=== PATIENT | male | born 1950 | race Caucasian/White ===

== ENCOUNTER 2019-08-22 10:17 | Emergency (ER) | payer OTHER ==
[~2019-08-22] VITALS: Ht 175.3 cm; Wt 127.0 kg
[~2019-08-22 10:17] MED LIST: ALLO300 PO; ASPI81EC PO; CHOLECALCIFEROL PO; MOME220I IH; NIAC250ER PO; OMEP20ER PO; SIMV10 PO; TRAZ50 PO
[2019-08-22 11:24] LABS: BASOPHILS ABSOLUTE AUTO 0.02 K/mm3 (0.00-0.23); BASOPHILS PERCENT AUTO 0 % (0-2); EOSINOPHILS ABSOLUTE AUTO 0.09 K/mm3 (0.00-0.68); EOSINOPHILS PERCENT AUTO 1 % (0-6); Hematocrit 46.5 % (37.0-53.0); Hemoglobin 15.7 g/dL (13.5-17.5); IMMATURE GRAN ABSOLUTE AUTO 0.01 K/mm3 (0.00-0.10); IMMATURE GRAN PERCENT AUTO 0 % (0-1); LYMPHOCYTES ABSOLUTE AUTO 1.87 K/mm3 (0.84-5.20); LYMPHOCYTES PERCENT AUTO 30 % (21-46); MONOCYTES ABSOLUTE AUTO 0.59 K/mm3 (0.16-1.47); MONOCYTES PERCENT AUTO 9 % (4-13); Mean Corpuscular HGB 32.2 pg (26.0-34.0); Mean Corpuscular HGB Conc 33.8 g/dL (31.5-36.5); Mean Corpuscular Volume 96 fL (80-100); Mean Platelet Volume 9.6 fL (9.1-12.4); NEUTROPHILS ABSOLUTE AUTO 3.72 K/mm3 (1.96-9.15); NEUTROPHILS PERCENT AUTO 59 % (41-73); Platelet Count 184 K/mm3 (150-400); RDW Coefficient Variation 13.2 % (11.7-14.2); RDW Standard Deviation 46.6 fL (35.1-46.3); Red Blood Cell Count 4.87 M/mm3 (4.30-5.90)
[2019-08-22 11:44] LABS: Alanine Aminotransfer (ALT/SGP 41 U/L (12-78); Albumin, Blood 3.8 g/dL (3.4-5.0); Albumin/Globulin Ratio 1.2 (0.8-1.8); Alk Phos 76 U/L (50-136); Anion Gap 6 mmol/L (6-16); Aspartate Aminotrans (AST/SGOT 26 U/L (12-37); Bilirubin, Total 0.6 mg/dL (0.1-1.0); Blood Urea Nitrogen 14 mg/dL (8-24); Bun/Creatinine Ratio 16.5 (12.0-20.0); CO2, Blood 28 mmol/L (21-32); Calcium, Blood 8.7 mg/dL (8.5-10.1); Chloride, Blood 106 mmol/L (98-108); Creatinine, Blood 0.85 mg/dL (0.60-1.20); Globulin, Blood 3.3 g/dL (2.2-4.0); Glomerular Filtration Rate >60 (60-); Glucose, Blood 116 mg/dL (70-99); Potassium, Blood 3.9 mmol/L (3.5-5.5); Sodium, Blood 140 mmol/L (136-145); Total Protein, Blood 7.1 g/dL (6.4-8.2)
[2019-08-22] MEDS ORDERED: HYDACE25S PR (11:55)
== END 2019-08-22 12:15 | disposition home or self-care (01) ==
LOC: ER 10:17
PROVIDERS: Emergency Medicine
DX: K64.8 Other hemorrhoids (principal); K60.2 Anal fissure, unspecified; Z88.8 Allergy status to other drugs, medicaments and biological substances; Z79.899 Other long term (current) drug therapy; Z79.82 Long term (current) use of aspirin
CPT/HCPCS: 36415; 80053; 85025; 86850; 86900; 86901; 99283

== ENCOUNTER 2021-06-23 13:21 | Inpatient (IN) | payer OTHER ==
[~2021-06-23] VITALS: Ht 177.8 cm; Wt 117.6 kg
[~2021-06-23 13:21] MED LIST changes: -ASPI81EC PO; +Aspir 8181 MG PO; +HYDACE25S PR
[2021-06-23] MEDS ORDERED: ZYRTEC10 M1 PO (14:10)
[2021-06-23] MEDS ORDERED: CLOP75 PO (14:11)
[2021-06-23] MEDS ORDERED: ACET500 (14:11)
[2021-06-23] MEDS ORDERED: TRAZ100 PO (14:12)
[2021-06-23] MEDS ORDERED: ASPIR 8181 M1 PO (14:12)
[2021-06-23] MEDS ORDERED: TAMS.4ER PO (14:12)
[2021-06-23] MEDS ORDERED: ATOR20 PO (14:13)
[2021-06-23] MEDS ORDERED: TORSE20 PO (14:13)
[2021-06-23] MEDS ORDERED: STRIVERDI RESPIM4 G1 INH (15:01)
[2021-06-23] MEDS ORDERED: FAMO20 PO (15:02)
[2021-06-23] MEDS ORDERED: FLUTICASONE PRO16 GM (15:02)
[2021-06-23] MEDS ORDERED: FINA5 PO (15:02)
[2021-06-23] MEDS ORDERED: PYRI100 PO (15:03)
[2021-06-23] MEDS ORDERED: ALLO300 PO (15:03)
[2021-06-23] MEDS ORDERED: ATOR40TA PO (15:03)
[2021-06-23] MEDS ORDERED: SEN-O-TAB8.6 MG PO (15:04)
[2021-06-23] MEDS ORDERED: COLACE100 MG PO (15:05)
[2021-06-23 15:06] LABS: SARS-Cov-2 (COVID-19) PCR, MMC NEGATIVE (NEGATIVE)
[2021-06-23] MEDS ORDERED: Vitamin D1000 UNI1 PO (15:06)
[2021-06-23 15:51] LABS: BASOPHILS ABSOLUTE AUTO 0.04 K/mm3 (0.00-0.23); BASOPHILS PERCENT AUTO 0 % (0-2); EOSINOPHILS ABSOLUTE AUTO 0.02 K/mm3 (0.00-0.68); EOSINOPHILS PERCENT AUTO 0 % (0-6); Hematocrit 48.7 % (37.0-53.0); Hemoglobin 17.2 g/dL (13.5-17.5); IMMATURE GRAN ABSOLUTE AUTO 0.03 K/mm3 (0.00-0.10); IMMATURE GRAN PERCENT AUTO 0 % (0-1); LYMPHOCYTES ABSOLUTE AUTO 1.19 K/mm3 (0.84-5.20); LYMPHOCYTES PERCENT AUTO 9 % (21-46); MONOCYTES ABSOLUTE AUTO 1.14 K/mm3 (0.16-1.47); MONOCYTES PERCENT AUTO 9 % (4-13); Mean Corpuscular HGB 32.5 pg (26.0-34.0); Mean Corpuscular HGB Conc 35.3 g/dL (31.5-36.5); Mean Corpuscular Volume 92 fL (80-100); Mean Platelet Volume 9.7 fL (9.1-12.4); NEUTROPHILS ABSOLUTE AUTO 10.81 K/mm3 (1.96-9.15); NEUTROPHILS PERCENT AUTO 82 % (41-73); Platelet Count 189 K/mm3 (150-400); RDW Coefficient Variation 12.7 % (11.7-14.2); RDW Standard Deviation 42.8 fL (35.1-46.3); Red Blood Cell Count 5.29 M/mm3 (4.30-5.90); White Blood Cell Count 13.23 K/mm3 (4.00-11.30)
[2021-06-23 16:23] LABS: Alanine Aminotransfer (ALT/SGP 40 U/L (12-78); Albumin, Blood 3.8 g/dL (3.4-5.0); Alk Phos 77 U/L (50-136); Anion Gap 7 mmol/L (6-16); Aspartate Aminotrans (AST/SGOT 20 U/L (12-37); Bilirubin, Total 1.1 mg/dL (0.1-1.0); Blood Urea Nitrogen 24 mg/dL (8-24); Bun/Creatinine Ratio 24.7 (12.0-20.0); CO2, Blood 33 mmol/L (21-32); Calcium, Blood 9.9 mg/dL (8.5-10.1); Chloride, Blood 103 mmol/L (98-108); Creatinine, Blood 0.97 mg/dL (0.60-1.20); Globulin, Blood 3.8 g/dL (2.2-4.0); Glomerular Filtration Rate >60 (60-); Glucose, Blood 201 mg/dL (70-99); Potassium, Blood 3.8 mmol/L (3.5-5.5); Sodium, Blood 143 mmol/L (136-145); Total Protein, Blood 7.6 g/dL (6.4-8.2)
--- NOTE | 2021-06-23 18:42 | NUR ---
PATIENT ARRIVED TO THE FLOOR VIA STRETCHER FROM THE ED AT 1630. TRANFERED TO THE BED FROM THE STRETCHER, STEADY ON FEET. NGT TO LEFT NARE, RETAPED AT THAT TIME TO SECURE BETTER, DRAINING LIGHT BROWN/GREEN DRAINAGE TO LIS. PATIENT IS AAOX4, ABLE TO MAKE NEEDS AND WANTS KNOWN BUT TAKES A WHILE TO GET HIS WORDS OUT SOMETIMES, MORE SO WHEN ASKED TOO MANY QUIESTIONS AT ONCE. NO SIGNS OR SYMPTOMS ACUTE DISTRESS NOTED. NO COMPLAINTS OF PAIN OR NAUSEA AT THIS TIME. NS AT 125/ML PER HOUR STARTED. DR SOSA CAME BY TO SEE PATIENT. PATIENT IS TO REMAIN NPO WITH MINIMAL ICE CHIPS AND A CT WILL BE DONE TOMORROW. WILL MONITOR.
--- NOTE | 2021-06-24 01:30 | NUR ---
C/O N/V, STATES IT WAS TRIGGERED BY INDIGESTION. REFLUX VALVE CLEARED WITH AIR. 50ML H2O INFUSED INTO NG TUBE. IMMEDIATE RETURN OF 250ML CLOUDY GREEN/BROWN FLUID NOTED INTO SUCTION CANISTER. TOTAL OF 1150ML NOTED IN CANISTER WHEN CHANGED OUT. RECONNECTED TO LIWS, FLUID CONTINUED TO DRAIN INTO NEW CANISTER. VOICES IMPROVEMENT IN PRESSURE AND INDIGESTION. LYING IN SEMI FOWLERS WITH EYES CLOSED. WILL CONTINUE TO MONITOR AND ADDRESS NEEDS THEY ARISE.
--- NOTE | 2021-06-24 03:22 | NUR ---
CANISTER CONTAINING 1250ML BROWN/GREEN FLUID CHANGED OUT FOR NEW ONE. PT ABLE TO VERBALIZE WHEN PRESSURE BEGINS BUILDING IN HIS ABDOMEN, AND NURSING IS ABLE TO IRRIGATE THE LINE NEEDED. DENIES FURTHER NEEDS OR WANTS AT THIS TIME. SAFETY MEASURES IN PLACE. WILL CONTINUE TO MONITOR AND ADDRESS NEEDS THEY ARISE.
[2021-06-24 05:13] LABS: International Normalized Ratio 1.04; Prothrombin Time Results 10.9 Sec (9.7-11.5)
[2021-06-24 05:23] LABS: Alanine Aminotransfer (ALT/SGP 36 U/L (12-78); Albumin, Blood 3.6 g/dL (3.4-5.0); Alk Phos 69 U/L (50-136); Anion Gap 3 mmol/L (6-16); Aspartate Aminotrans (AST/SGOT 20 U/L (12-37); Bilirubin, Total 1.2 mg/dL (0.1-1.0); Blood Urea Nitrogen 25 mg/dL (8-24); Bun/Creatinine Ratio 26.8 (12.0-20.0); CO2, Blood 39 mmol/L (21-32); Calcium, Blood 9.5 mg/dL (8.5-10.1); Chloride, Blood 101 mmol/L (98-108); Creatinine, Blood 0.93 mg/dL (0.60-1.20); Globulin, Blood 3.7 g/dL (2.2-4.0); Glomerular Filtration Rate >60 (60-); Glucose, Blood 282 mg/dL (70-99); Potassium, Blood 3.1 mmol/L (3.5-5.5); Sodium, Blood 143 mmol/L (136-145); Total Protein, Blood 7.3 g/dL (6.4-8.2)
--- NOTE | 2021-06-24 05:31 | NUR ---
LYING ON RIGHT SIDE WITH EYES OPEN, HAS RESTED OFF AND ON THIS SHIFT. RESPIRATIONS EVEN AND UNLABORED ON O2 AT 4L/NC. HAS BEEN NPO SINCE ADMISSION NG TUBE TO LEFT NARE REMAINS PATENT, DRAINING CLOUDY BROWN/GREEN LIQUID TO LIWS. CANISTER CHANGED TWICE THIS SHIFT. ABLE TO VERBALIZE IF PRESSURE BUILDUP IN ABDOMEN BECOMES TOO UNCOMFORTABLE. IRRIGATED NG TUBE X2 THIS SHIFT WITH 50ML EACH TIME, WORKS WELL. PT HAS PMHX OF TBI, HAS ISSUES WITH COLLECTING HIS THOUGHTS AND COMMUNICATION AT TIMES. PAIN MANAGED PRN PER MD ORDERS AND EMAR. DENIES FURTHER NEEDS OR WANTS AT THIS TIME. SAFETY MEASURES IN PLACE. WILL CONTINUE TO MONITOR AND ADDRESS NEEDS THEY ARISE. WILL GIVE HAND OFF TO ONCOMING SHIFT USING SBAR DURING BEDSIDE REPORT.
--- NOTE | 2021-06-24 17:36 | NUR ---
PATIENT CURRENTLY SITTIN EDGE OF BED DRINKING HIS CLEAR LIQUID DINNER. TOLERATING PO WELL. THIS AM PATIENT WENT DOWN TO XRAY FOR SBO SERIES, PATIENT HAD MULTIPLE BOWEL MOVEMENTS WHEN RETURNING WITH SOME FORMED PARTICLES NOTED IN TOILET. DR SOSA LOOKED SCANS ORDERED FOR NGT TO BE REMOVED. AND TO GIVE PATIENT A CLEAR LIQUID DIET. NGT REMOVED, TOLERATED WELL AT 1330. PATIENT CURRENTLY ON 3L O2 PER NC, CONTINOUS PULSE OX SHOWS PATIENT STAYING AT 88-93%. PATIENT DOES NOTE USED O2 AT HOME BUT DOES USE A CPAP AT HS. CAREGIVER BROUGHT HIS PERSONAL CPAP IN FOR PATIENT TO USE TONIGHT. NO SIGNS OR SYMPTOMS ACUTE DISTRESS NOTED. CAREGIVER HAS BEEN HERE MOST OF THE DAY WITH PERMISSION FROM CHARGE NURSE. PATIENT IS ABLE TO MAKE NEEDS KNOWN BUT UNABLE TO AT TIMES VOICE NEEDS CLEARLY, HE GETS FRUSTRATED AND WORKED UP, HE IS REDIRECTED FAIRLY EASILIY. WILL CONTINUE TO MONITOR.
--- NOTE | 2021-06-25 06:01 | NUR ---
PT IS A/OX1, TO SELF. CONFUSED TO TIME OF DAY, WHERE HE IS AT. IS EASILY FROSTRATED AND AGGITATED. HX OF TBI. DOES NOT USE CALL LIGHT TO MAKE HIS NEEDS KNOWN, INSTEAD YELLS OUT. USED HIS HOME CPAP MOST OF THE NIGHT, BUT FREQUENTLY REMOVED IT THEN REAPPLIED IT DURING THE NIGHT WHILE YELLING OUT "I DON'T KNOW HOW TO OPEN IT. I DON'T KNOW HOW TO USE IT. FROM THE V.A." CONTINOUS PULSE OX IN PLACE. IF NOT USING HIS CPAP, THEN OXYGEN AT 4L PER NC. DOES DESAT INTO HIGH 80'S WHEN NOT USING CPAP OR OXYGEN. HS BLOOD SUGAR: 246. HE REFUSED HS INSULIN.
[2021-06-25 07:56] LABS: Hematocrit 48.2 % (37.0-53.0); Hemoglobin 16.4 g/dL (13.5-17.5); Mean Corpuscular HGB 32.5 pg (26.0-34.0); Mean Corpuscular Volume 95 fL (80-100); Mean Platelet Volume 10.3 fL (9.1-12.4); Platelet Count 174 K/mm3 (150-400); RDW Coefficient Variation 13.1 % (11.7-14.2); Red Blood Cell Count 5.05 M/mm3 (4.30-5.90); White Blood Cell Count 5.14 K/mm3 (4.00-11.30)
[2021-06-25 08:07] LABS: Anion Gap 4 mmol/L (6-16); Blood Urea Nitrogen 31 mg/dL (8-24); CO2, Blood 37 mmol/L (21-32); Calcium, Blood 8.8 mg/dL (8.5-10.1); Chloride, Blood 105 mmol/L (98-108); Creatinine, Blood 0.97 mg/dL (0.60-1.20); Glomerular Filtration Rate >60 (60-); Glucose, Blood 213 mg/dL (70-99); Potassium, Blood 2.9 mmol/L (3.5-5.5); Sodium, Blood 146 mmol/L (136-145); Thyroid Stimulating Hormone 0.833 uIU/mL (0.360-4.800)
[2021-06-25 08:33] LABS: BAND PERCENT MAN 33 % (0-8); BASOPHILS PERCENT MAN 0 % (0-2); EOSINOPHILS ABSOLUTE MAN 0.05 K/mm3 (0.00-0.68); EOSINOPHILS PERCENT MAN 1 % (0-6); LYMPHOCYTES ABSOLUTE MAN 1.07 K/mm3 (0.84-5.20); LYMPHOCYTES PERCENT MAN 21 % (21-46); MONOCYTES ABSOLUTE MAN 0.66 K/mm3 (0.16-1.47); MONOCYTES PERCENT MAN 13 % (4-13); NEUTROPHILS ABSOLUTE MAN 3.34 K/mm3 (1.96-9.15); SEG NEUTROPHILS PERCENT MAN 32 % (41-73); TOTAL CELLS COUNTED 100
[2021-06-25 10:25] LABS: Adenovirus Not Detected (NOT DETECT); Coronavirus 229E Not Detected (NOT DETECT); Coronavirus HKU1 Not Detected (NOT DETECT); Coronavirus NL63 Not Detected (NOT DETECT); Coronavirus OC43 Not Detected (NOT DETECT); Human Metapneumovirus Not Detected (NOT DETECT); Human Rhinovirus/Enterovirus Not Detected (NOT DETECT); Influenza A/2009-H1 Not Detected (NOT DETECT); Influenza A/H1 Not Detected (NOT DETECT); Influenza A/H3 Not Detected (NOT DETECT); Influenza B Not Detected (NOT DETECT); SARS-Cov-2 (COVID-19), BioFire Not Detected (NOT DETECT)
[2021-06-25 10:26] LABS: Bordetella pertussis Not Detected (NOT DETECT); Chlamydophila pneumoniae Not Detected (NOT DETECT); Mycoplasma pneumoniae Not Detected (NOT DETECT); Parainfluenza Virus 1 Not Detected (NOT DETECT); Parainfluenza Virus 2 Not Detected (NOT DETECT); Parainfluenza Virus 3 Not Detected (NOT DETECT); Parainfluenza Virus 4 Not Detected (NOT DETECT); Respiratory Syncytial Virus Not Detected (NOT DETECT)
--- NOTE | 2021-06-25 18:33 | NUR ---
PATIENT CURRENTLY LYING IN BED WITH EYES CLOSED WITH CPAP ON WITH 5L OF 02 BLEEDING INTO HIS MACHINE. NO SIGNS OR SYMPTOMS ACUTE DISTRESS NOTED AT THIS TIME. PATIENT HAD EVENTFUL DAY TODAY. COMPLAINED OF ABD PAIN AND WAS MEDICATED WITH PAIN MEDS PER ORDERS-SEE EMAR. PATIENT HAD MULTIPLE LOOSE STOOLS AND GAS THIS AM, WAS UNABLE TO COLLECT STOOL FOR CDIFF HE DID NOT HAVE ANOTHER STOOL AFTER THE ORDER WAS PLACED. WILL PASS ON TO NEXT SHIFT TO COLLECT STOOL IF HE HAS ONE. PATIENT WORKED WITH PT AND OT TODAY AND WALKED IN THE TORRES. TOLERATED FAIR. O2 INCREASED TO 5L PER NC DUE TO DESATURATION ON MULTIPLE OCCASIONS. HE WAS PLACED ON HIS CPAP AT ABOUT 1400 PER RT TO REST, PATIENT COMPLIED AND SLEPT FAIRLY WELL WITH CAREGIVER IN ROOM. SAT UP TO EAT SUPPER, ATE POORLY. BOWEL SOUNDS ACTIVE. ABD DISTENDED AND TENDER. WILL MONITOR.
--- NOTE | 2021-06-26 06:20 | NUR ---
PT IS A/OX1, TO SELF. YELLS OUT. POOR SAFETY AWARENESS. EASILY AGITATED AND FRUSTRATED. USED CPAP DURING THE NIGHT. CONTINOUS PULSE OX IN PLACE. ABD DISTENDED. PT C/O STOMACHE ACHE AND FEELING BLOATED. SIMETHICONE GIVEN. PASSING SOME GAS. HAD LOOSE STOOL, BUT WAS MIXED W/URINE TO UNABLE TO OBTAIN SAMPLE FOR C-DIFF. ON CONTACT PRECAUTIONS TO R/T C-DIFF. BT'S VERY HYPO.
[2021-06-26 07:03] LABS: Hematocrit 42.7 % (37.0-53.0); Hemoglobin 14.8 g/dL (13.5-17.5); Mean Corpuscular HGB 32.7 pg (26.0-34.0); Mean Corpuscular HGB Conc 34.7 g/dL (31.5-36.5); Mean Corpuscular Volume 95 fL (80-100); Platelet Count 170 K/mm3 (150-400); RDW Coefficient Variation 12.8 % (11.7-14.2); RDW Standard Deviation 44.4 fL (35.1-46.3); Red Blood Cell Count 4.52 M/mm3 (4.30-5.90); White Blood Cell Count 8.68 K/mm3 (4.00-11.30)
[2021-06-26 07:07] LABS: Anion Gap 2 mmol/L (6-16); Blood Urea Nitrogen 24 mg/dL (8-24); Bun/Creatinine Ratio 26.9 (12.0-20.0); CO2, Blood 34 mmol/L (21-32); Calcium, Blood 8.3 mg/dL (8.5-10.1); Chloride, Blood 107 mmol/L (98-108); Creatinine, Blood 0.89 mg/dL (0.60-1.20); Glomerular Filtration Rate >60 (60-); Glucose, Blood 164 mg/dL (70-99); Magnesium, Blood 2.2 mg/dL (1.6-2.4); Potassium, Blood 3.1 mmol/L (3.5-5.5); Sodium, Blood 143 mmol/L (136-145)
[2021-06-26 07:47] LABS: BAND PERCENT MAN 9 % (0-8); BASOPHILS PERCENT MAN 0 % (0-2); EOSINOPHILS ABSOLUTE MAN 0.34 K/mm3 (0.00-0.68); EOSINOPHILS PERCENT MAN 4 % (0-6); LYMPHOCYTES ABSOLUTE MAN 1.12 K/mm3 (0.84-5.20); LYMPHOCYTES PERCENT MAN 13 % (21-46); MONOCYTES ABSOLUTE MAN 1.21 K/mm3 (0.16-1.47); MONOCYTES PERCENT MAN 14 % (4-13); NEUTROPHILS ABSOLUTE MAN 5.98 K/mm3 (1.96-9.15); SEG NEUTROPHILS PERCENT MAN 60 % (41-73); TOTAL CELLS COUNTED 100
--- NOTE | 2021-06-26 17:00 | NUR ---
RESTLESS AND CALLING OUT AT TIMES, PT CALMS WHEN STAFF OR CAREGIVER AT BEDSIDE. PT REPORTS ABD PAIN THAT "COMES AND GOES" ABD DISTENDED WITH ACTIVE BOWEL SOUNDS, NO BM THIS SHIFT.
--- NOTE | 2021-06-26 17:13 | NUR ---
PT USES CPAP MOST OF SHIFT, WEARS OXYGEN AT 5 LITER NC WHEN SITTING ON EDGE OF BED. ELECTRICAL MACHINIST CONSULT COMPLETED AND ELECTRICAL MACHINIST COMPLETED REFERRAL TO [facility] ELECTRICAL MACHINIST FOR DIABETIC EDUCATION.
[2021-06-27 05:12] LABS: C DIFFICILE DNA NEGATIVE (Negative)
--- NOTE | 2021-06-27 07:49 | NUR ---
SUMMARY PT SLEPT MOST OF NIGHT,AND PLANS FOR POSSIBLE D/C HOME IN AM
[2021-06-27] MEDS ORDERED: BUSP5 PO (17:18)
[2021-06-27] MEDS ORDERED: METF500 PO (17:19)
[2021-06-27] MEDS ORDERED: ONDA4ODT MM (17:20)
[2021-06-27] MEDS ORDERED: SIME80CH PO (17:21)
--- NOTE | 2021-06-27 17:21 | NUR ---
discharge: MESSAGE FOR HOME HEALTH LIASON LEFT REGARDING PT DISCHARGE TO HOME WITH JULI. MEDICATIONS FAXED TO PHARMACY. PT TO PAY OUT OF POCKET TO FILL METFORMIN, SCRIPT FAXED TO PHARMACY. [facility] WILL SET PT UP WITH PORTABLE AND HOME O2 PRIOR TO DISCHARGE.
--- NOTE | 2021-06-27 18:44 | NUR ---
PLAN FOR PT DC TONIGHT, PACKET PRINTED AND PT/PT CAREGIVER EDUCATED. AWAITING HOME O2 FROM [facility] AT THIS TIME. UTILITIES GROUND WORKER CALLING THE [facility] INFUSION NURSE FOR THE 2ND TIME NOW
== END 2021-06-27 19:10 | disposition home health service (06) | DRG 389 ==
LOC: ER 13:21 → SURS 14:58
PROVIDERS: Emergency Medicine; Internal Medicine; Nurse Practitioner Acute Care; Surgery; ADMIT Family Medicine
DX: K91.30 Postprocedural intestinal obstruction, unspecified as to partial versus complete (principal); E66.2 Morbid (severe) obesity with alveolar hypoventilation; R65.10 Systemic inflammatory response syndrome (SIRS) of non-infectious origin without acute organ dysfunction; I50.32 Chronic diastolic (congestive) heart failure; Z20.822 Contact with and (suspected) exposure to COVID-19; E11.9 Type 2 diabetes mellitus without complications; G47.33 Obstructive sleep apnea (adult) (pediatric); Z68.37 Body mass index [BMI] 37.0-37.9, adult; E78.5 Hyperlipidemia, unspecified; E87.6 Hypokalemia; N40.0 Benign prostatic hyperplasia without lower urinary tract symptoms; K21.9 Gastro-esophageal reflux disease without esophagitis; Z86.73 Personal history of transient ischemic attack (TIA), and cerebral infarction without residual deficits; G47.00 Insomnia, unspecified; M19.90 Unspecified osteoarthritis, unspecified site; Z90.49 Acquired absence of other specified parts of digestive tract; Z98.890 Other specified postprocedural states; Z79.82 Long term (current) use of aspirin; Z79.899 Other long term (current) drug therapy; Z88.8 Allergy status to other drugs, medicaments and biological substances; Z79.02 Long term (current) use of antithrombotics/antiplatelets; Z86.718 Personal history of other venous thrombosis and embolism; K59.00 Constipation, unspecified; M10.9 Gout, unspecified
CPT/HCPCS: 0202U; 36415; 71045; 71046; 74177; 74250; 80048; 80053; 82947; 83605; 83735; 84443; 85025; 85610; 87040; 87493; 94640; 94762; 96374; 97110; 97116; 97162; 97166; 97530; 97535; 99285-25; A9270; C9113; J1815; J2405; J2543; J3010; J3480; J7030; Q9967; U0004

== ENCOUNTER 2023-08-23 13:12 | Emergency (ER) | payer OTHER ==
[~2023-08-23] VITALS: Ht 177.8 cm; Wt 114.3 kg
[~2023-08-23 13:12] MED LIST changes: +ACET500; +ASPIR 8181 M1 PO; +ATOR20 PO; +ATOR40TA PO; +BUSP5 PO; +CLOP75 PO; +COLACE100 MG PO; +FAMO20 PO; +FINA5 PO; +FLUTICASONE PRO16 GM; +METF500 PO; +ONDA4ODT MM; +PYRI100 PO; +SEN-O-TAB8.6 MG PO; +SIME80CH PO; +STRIVERDI RESPIM4 G1 INH; +TAMS.4ER PO; +TORSE20 PO; +TRAZ100 PO; +Vitamin D1000 UNI1 PO; +ZYRTEC10 M1 PO
[2023-08-23 14:47] VITALS: BP 169/76
== END 2023-08-23 14:55 | disposition home or self-care (01) ==
LOC: ER 13:12
DX: S09.90XA Unspecified injury of head, initial encounter (principal); E78.5 Hyperlipidemia, unspecified; M10.9 Gout, unspecified; W01.0XXA Fall on same level from slipping, tripping and stumbling without subsequent striking against object, initial encounter; Z88.8 Allergy status to other drugs, medicaments and biological substances; Z79.02 Long term (current) use of antithrombotics/antiplatelets; Z79.82 Long term (current) use of aspirin; Z79.84 Long term (current) use of oral hypoglycemic drugs; Z79.899 Other long term (current) drug therapy; Z86.73 Personal history of transient ischemic attack (TIA), and cerebral infarction without residual deficits; Z87.891 Personal history of nicotine dependence
CPT/HCPCS: 70450; 99284-25

== ENCOUNTER 2024-11-03 07:57 | Inpatient (IN) | payer OTHER ==
[~2024-11-03] VITALS: Ht 175.3 cm; Wt 106.9 kg
[2024-11-03 09:03] LABS: BASOPHILS ABSOLUTE AUTO 0.05 K/mm3 (0.00-0.23); BASOPHILS PERCENT AUTO 0 % (0-2); EOSINOPHILS ABSOLUTE AUTO 0.02 K/mm3 (0.00-0.68); EOSINOPHILS PERCENT AUTO 0 % (0-6); Hematocrit 47.4 % (37.0-53.0); Hemoglobin 16.5 g/dL (13.5-17.5); IMMATURE GRAN ABSOLUTE AUTO 0.07 K/mm3 (0.00-0.10); IMMATURE GRAN PERCENT AUTO 0 % (0-1); LYMPHOCYTES ABSOLUTE AUTO 1.03 K/mm3 (0.84-5.20); LYMPHOCYTES PERCENT AUTO 7 % (21-46); MONOCYTES ABSOLUTE AUTO 1.03 K/mm3 (0.16-1.47); MONOCYTES PERCENT AUTO 7 % (4-13); Mean Corpuscular HGB 31.9 pg (26.0-34.0); Mean Corpuscular HGB Conc 34.8 g/dL (31.5-36.5); Mean Corpuscular Volume 92 fL (80-100); Mean Platelet Volume 10.2 fL (9.1-12.4); NEUTROPHILS PERCENT AUTO 86 % (41-73); Platelet Count 228 K/mm3 (150-400); RDW Coefficient Variation 13.6 % (11.7-14.2); RDW Standard Deviation 46.3 fL (35.1-46.3); Red Blood Cell Count 5.17 M/mm3 (4.30-5.90)
[2024-11-03 09:27] LABS: Albumin, Blood 4.4 g/dL (3.4-5.0); Albumin/Globulin Ratio 1.1 (0.8-1.8); Bilirubin, Total 1.1 mg/dL (0.1-1.0); Calcium, Blood 9.6 mg/dL (8.5-10.1); Creatinine, Blood 1.24 mg/dL (0.60-1.20); Globulin, Blood 3.9 g/dL (2.2-4.0); Potassium, Blood 4.2 mmol/L (3.5-5.5); Total Protein, Blood 8.3 g/dL (6.4-8.2)
[2024-11-03] MEDS ORDERED: Azithromycin 500 MG in NS 250 ML IV ONE (09:50)
[2024-11-03] MEDS ORDERED: NS 1,000 ML IV SCH (09:50)
[2024-11-03] MEDS ORDERED: CefTRIAXone Sodium 2,000 MG in NS 100 ML IV ONE (09:50)
[2024-11-03] MEDS ORDERED: FentaNYL Citrate 50 MCG/ML 2 ML Injection IV PRN (11:05)
[2024-11-03] MEDS ORDERED: OxyCODONE HCL 5 MG TAB PO PRN (12:50)
[2024-11-03] MEDS ORDERED: Morphine Sulfate 4 MG/1 ML Injection IV PRN (12:50)
[2024-11-03] MEDS ORDERED: Ondansetron HCl 2 MG / ML 2ML Vial IV PRN (12:50)
[2024-11-03] MEDS ORDERED: Lidocaine 4% 1 Patch TOP SCH (13:00)
[2024-11-03] MEDS ORDERED: Polyethylene Glycol 3350 17 gm PO PRN (13:20)
[2024-11-03] MEDS ORDERED: FLU VACC TS2024-25(6MOS UP)/PF 45 MCG/0.5 ML SYRINGE IM ONE (14:00)
[2024-11-03] MEDS ORDERED: Lactated Ringer's 1,000 ML IV SCH (14:14)
[2024-11-03 14:24] VITALS: BP 156/82
--- NOTE | 2024-11-03 14:49 | NUR ---
ARRIVAL TO UNIT AFTER RECEIVING REPORT FROM ED RN, PATIENT TRANSFERRED TO UNIT VIA [facility] AT APPROX 1415. PATIENT ABLE TO STAND AND TRANSFER FROM GURNEY TO BED WITH 1P ASSIST - UNSTEADY GAIT. ALERT AND ORIENTED X2-3. UNABLE TO REPORT MEDICAL HX. BED ALARM ON. SOFT, GARBLED SPEECH. NEIGHBOR BRADLEY AT BEDSIDE - PER NEIGHBOR, PATIENT LIVES ALONE IN TRAIL[place] AND HE AND BEVERLY ASSIST WITH CARE. PER BEVERLY HUERTA MANAGES HEALTH INFORMATION - BEVERLY TO BRING IN MEDICATION LIST FOR HOME MED VERIFICATION. VSS. TELEMETRY SHOWING SINUS 70s PER HEALTH TECHNICAL WRITER. PLACED ON 2L VIA NC. SATs 86-88% ON ROOM AIR. PILLOW PROVIDED FOR SPLINTING WITH OCCASIONAL COUGH. CALL LIGHT IN REACH.
[2024-11-03] MEDS ORDERED: Prozac40 MG PO (15:26)
[2024-11-03] MEDS ORDERED: LIDO700A20 TOP (15:30)
[2024-11-03] MEDS ORDERED: MIRALAX17 GM PO (15:35)
[2024-11-03] MEDS ORDERED: POTASSIUM CHLO15 MEQ PO (15:45)
[2024-11-03] MEDS ORDERED: B-12500 MC2 PO (15:49)
[2024-11-03] MEDS ORDERED: MELA3 PO (15:49)
[2024-11-03] MEDS ORDERED: Insulin Human Lispro 100 Units/ML 3ML Syringe SC SCH ×2 (16:30)
[2024-11-03] MEDS ORDERED: Insulin Regular 100 UNIT/ML 10ML Vial SC SCH (16:30)
--- NOTE | 2024-11-03 17:20 | NUR ---
SHIFT SUMMARY NO ACUTE EVENTS SINCE ARRIVAL TO UNIT. PATIENT REMAINS ALERT AND ORIENTED X2-3. CALLS OUT TO COMMUNICATE NEEDS. CALL LIGHT IN REACH - EDUCATION PROVIDED. BED ALARM ON. HOME MED REC COMPLETED THIS AFTERNOON. HOSPITALIST CONSULT IN PLACE. MD PEDROZA AT BEDSIDE FOR CONSULT - NO ORDERS RECEIVED. VSS. TELEMETRY SHOWING SINUS 80s PER REMOTE SENSING TECHNICIAN - NO EVENTS REPORTED. REMAINS ON 2L VIA NC. HOME CPAP SET UP BY RT FOR USE TONIGHT. MANAGING R SIDE PAIN PER EMAR. X1 EPISODE OF N/V - IV ZOFRAN ADMINISTERED PER EMAR. CALL LIGHT IN REACH.
[2024-11-03] MEDS ORDERED: Albuterol 2.5 MG/3 ML VIAL INH PRN (17:25)
[2024-11-03] MEDS ORDERED: Atorvastatin 40 MG Tab PO SCH (18:00)
[2024-11-03] MEDS ORDERED: Ibuprofen 400 MG Tab PO SCH (18:00)
[2024-11-03] MEDS ORDERED: Acetaminophen 500 MG Tab PO SCH (18:00)
[2024-11-03 20:01] VITALS: BP 139/90
[2024-11-03] MEDS ORDERED: Sennosides 8.6 MG Tab PO SCH (21:00)
[2024-11-03] MEDS ORDERED: Famotidine 20 MG Tab PO SCH (21:00)
[2024-11-03] MEDS ORDERED: TraZODone HCl 100 MG Tab PO SCH (21:00)
[2024-11-03] MEDS ORDERED: Melatonin 3 MG Tab PO PRN (23:05)
[2024-11-03 23:44] VITALS: BP 132/72
[2024-11-04] MEDS ORDERED: Albuterol 2.5 MG/3 ML VIAL INH SCH (01:20)
[2024-11-04 03:44] VITALS: BP 138/86
[2024-11-04] MEDS ORDERED: Lidocaine 2% Jelly Uro-Jet UR ONE (03:55)
[2024-11-04 05:48] LABS: BASOPHILS ABSOLUTE AUTO 0.04 K/mm3 (0.00-0.23); BASOPHILS PERCENT AUTO 1 % (0-2); EOSINOPHILS ABSOLUTE AUTO 0.04 K/mm3 (0.00-0.68); EOSINOPHILS PERCENT AUTO 1 % (0-6); Hematocrit 43.6 % (37.0-53.0); Hemoglobin 14.7 g/dL (13.5-17.5); IMMATURE GRAN ABSOLUTE AUTO 0.02 K/mm3 (0.00-0.10); IMMATURE GRAN PERCENT AUTO 0 % (0-1); LYMPHOCYTES ABSOLUTE AUTO 1.19 K/mm3 (0.84-5.20); LYMPHOCYTES PERCENT AUTO 14 % (21-46); MONOCYTES ABSOLUTE AUTO 1.26 K/mm3 (0.16-1.47); MONOCYTES PERCENT AUTO 15 % (4-13); Mean Corpuscular HGB 31.7 pg (26.0-34.0); Mean Corpuscular HGB Conc 33.7 g/dL (31.5-36.5); Mean Corpuscular Volume 94 fL (80-100); Mean Platelet Volume 9.8 fL (9.1-12.4); NEUTROPHILS ABSOLUTE AUTO 6.02 K/mm3 (1.96-9.15); NEUTROPHILS PERCENT AUTO 70 % (41-73); Platelet Count 190 K/mm3 (150-400); RDW Standard Deviation 48.1 fL (35.1-46.3); Red Blood Cell Count 4.64 M/mm3 (4.30-5.90); White Blood Cell Count 8.57 K/mm3 (4.00-11.30)
[2024-11-04 06:12] LABS: Albumin, Blood 3.7 g/dL (3.4-5.0); Bilirubin, Direct 0.3 mg/dL (0.0-0.3); Bilirubin, Total 1.3 mg/dL (0.1-1.0); Bun/Creatinine Ratio 31.2 (12.0-20.0); Calcium, Blood 8.8 mg/dL (8.5-10.1); Creatinine, Blood 1.09 mg/dL (0.60-1.20); Globulin, Blood 3.7 g/dL (2.2-4.0); Magnesium, Blood 2.2 mg/dL (1.6-2.4); Potassium, Blood 3.5 mmol/L (3.5-5.5); Total Protein, Blood 7.4 g/dL (6.4-8.2)
--- NOTE | 2024-11-04 07:20 | NUR ---
NURSES NOTES; PATIENT BECAME MORE AND MORE ANXIOUS THE NIGHT WHENT ON. NOT AGGRESSIVE OR BEING MEAN. AND NOT REALLY TRYING TO GET UP. JUST REMOVING O2 MASK AND OXIMETER. AND TELE. AND CALLING OUT SOON I LEFT THE ROOM. ALSO HE HAD NOT VOIDED ALL SHIFT SO BS WAS [address] C[address] WAS 400.TELE SR 95.OS REBREATHER MASK AT 5L/
[2024-11-04 07:31] VITALS: BP 128/83
[2024-11-04] MEDS ORDERED: Torsemide 20 MG TAB PO SCH (09:00)
[2024-11-04] MEDS ORDERED: Loratadine 10 MG Tab PO SCH (09:00)
[2024-11-04] MEDS ORDERED: Finasteride 5 MG Tab PO SCH (09:00)
[2024-11-04] MEDS ORDERED: Enoxaparin 40 MG/0.4 ML SYR SC SCH (09:00)
[2024-11-04] MEDS ORDERED: Allopurinol 300 MG Tab PO SCH (09:00)
[2024-11-04] MEDS ORDERED: FLUoxetine HCL 20 MG CAP PO SCH ×2 (09:00→10:35)
[2024-11-04] MEDS ORDERED: CefTRIAXone Sodium 2,000 MG in NS 100 ML IV SCH (09:00)
[2024-11-04] MEDS ORDERED: Cyanocobalamin 500 MCG Tab PO SCH (09:00)
[2024-11-04] MEDS ORDERED: Ketorolac Tromethamine 15mg Vial IV PRN (09:00)
[2024-11-04] MEDS ORDERED: Potassium Chloride 20 MEQ/15 ML UDC PO SCH (09:00)
[2024-11-04] MEDS ORDERED: Docusate Sodium 100 MG Cap PO SCH (09:00)
[2024-11-04] MEDS ORDERED: Cholecalciferol 1000 Unit Tablet (=25MCG) PO SCH (09:00)
[2024-11-04 12:15] VITALS: BP 135/79
[2024-11-04] MEDS ORDERED: Cyclobenzaprine HCl 10 MG Tab PO PRN (12:15)
--- NOTE | 2024-11-04 13:41 | NUR ---
DR. SOSA NOTIFIED OF BLADDER SCAN VOLUME OF 340 ML URINE AT 11:17. DR. SOSA SUGGESTED THAT THE PATIENT MIGHT NOT BE ABLE TO VOID UNTIL HIS BLADDER IS LOPEZ WITH A VOLUME CLOSER TO 600-800ML. SHE SUGGESTED THAT WE NOT STRAIGHT CATH HIM REPEATEDLY WITH A LOWER BLADDER SCAN VOLUME.
[2024-11-04 14:48] VITALS: BP 142/80
--- NOTE | 2024-11-04 19:14 | NUR ---
PATIENT IS ALERT AND ORIENTED TO SELF, SISTER AND PLACE. THE SISTER IS AT THE BEDSIDE NOW AND REPORTS THAT THE PATIENT IS CLOSE TO HIS BASELINE BESIDES THE RIB PAIN AND WEARING OXYGEN. SHE REPORTS THAT THE PATIENT CAN BE AGITATED AND NON COMPLIANT AT HOME, THAT HE IS NOMALLY UNSTEADY ON HIS FEET AND UNCOORDINATED, THAT HE HAS CHRONIC CONSTIPATION AND THAT SHE OFTEN SPEAKS FOR HIM OR FINISHES HIS SENTENCES BECAUSE SHE KNOWS HIM SO WELL. SHE IS HOPING TO BE HERE WHEN DR. PEDROZA SEES THE PATIENT IN THE MORNING. DHALIWAL PLACED TODAY. PAIN MANAGED PER EMAR. ON 4L VIA MASK. THE SISTER ALSO REPORTS THAT THE PATIENT'S STOMACH SIZE IS NORMAL. REPORT GIVEN TO ONCBRYAN VARELA
[2024-11-04 20:19] VITALS: BP 128/80
[2024-11-04] MEDS ORDERED: Tamsulosin HCl 0.4 MG Cap PO SCH (21:00)
[2024-11-04 23:52] VITALS: BP 138/85
--- NOTE | 2024-11-05 04:26 | NUR ---
SHIFT SUMMARY EDWIN WAS ALERT AND ORIENTED TO SELF AND HIS SISTER WHO WAS PRESENT IN ROOM ON ASSESSMENT. PT PAIN SEEMS WELL CONTROLLED AT THIS TIME. SITTER PRESENT IN ROOM T/O SHIFT. PT HAD NO BEHAVIOR ISSUES THIS SHIFT SO FAR. PT CURRENTLY ON CPAP WITH 4L BLEED IN SATTING >90% NO ACUTE EVENTS NO NOTED CHANGES TO PT CONDITION.
[2024-11-05 05:06] VITALS: BP 145/95
[2024-11-05 07:09] VITALS: BP 116/75
[2024-11-05] MEDS ORDERED: FLUoxetine HCL 20 MG CAP PO SCH (09:00)
[2024-11-05 11:31] VITALS: BP 128/72
--- NOTE | 2024-11-05 11:35 | NUR ---
TRANSFER NOTE PT TRANSFERED TO ROOM 341 FROM 212 VIA BED. PT IS A/O X3-4, RESTING COMFORTABLY, "SISTER/FRIEND" AT BEDSIDE. 4L NC IN PLACE. REPORT TO SUMIT VARELA. PT TRANSFERED IN STABLE CONDITION W/ ALL BELONGINGS.
--- NOTE | 2024-11-05 13:23 | NUR ---
PT TRANSFERED TO MEDICAL FLOOR FROM ROOM 212- PT ARRIVED PRIOR TO LUNCH, UNABLE TO LOCATE INSULIN PEN. SPOKE TO [facility]ARM[facility] AND REQUESTED A PEN, THEY ARE SEARCHING FOR IT. PT HOB WAS ELEVATED COMPLETELY AND GLOBAL CEO WAS ASSISTING HIM WITH LUNCH, PER SITTER THE PT "ASPIRATES A LITTLE WHEN HE EATS." THIS RN CALLED DR MINER AND SPOKE TO HER, SHE IS AWARE OF THIS NOW, NEW ORDER RECIEVED FOR SPEECH THERAPY EVAL.
[2024-11-05 15:52] VITALS: BP 129/76
--- NOTE | 2024-11-05 20:07 | NUR ---
SHIFT SUMMARY- PT TRANSFERED TO MEDICAL FLOOR FROM SURGICAL FLOOR. PT SEEMS, AT THE TIME OF BEDSIDE REPORT, TO BE MORE AGGITATED AND TO BE HAVING A LITTLE MORE DIFFICULTY BREATHING. NIGHT RN AWARE. SATS ARE GREATER THAN 90% ON 5L VIA NC RESP RATE ELEVATED. THE ROOM IS VERY WARM AND ATTEMPTS TO RESET AND LOWER THE TEMP HAVE FAILED. CALLED THE FACILITIES DEPARTMENT AND THEY WILL LOOK INTO IT. PT IN BED SITTING UP WITH A FAN ON HIM AND NO BLANKETS. DHALIWAL CATH IN PLACE FOR ACUTE RETENTION. PT HAS AN ORDER FOR CPAP BUT HAS A SMALL PNEUMO. CPAP IS CONTRAINDICATED WITH THE RIB Fx AND THE PNEUMO. HOME CPAP IN THE ROOM ON THE SHELF ACROSS THE ROOM. RT AWARE OF PLACEMENT.
[2024-11-05 20:35] VITALS: BP 146/81
[2024-11-06 00:06] VITALS: BP 142/75
[2024-11-06 04:00] VITALS: BP 142/83
[2024-11-06 05:22] LABS: Hematocrit 42.4 % (37.0-53.0)
[2024-11-06 05:51] LABS: Bun/Creatinine Ratio 34.3 (12.0-20.0); Calcium, Blood 9.6 mg/dL (8.5-10.1); Creatinine, Blood 1.02 mg/dL (0.60-1.20); Magnesium, Blood 2.7 mg/dL (1.6-2.4); Phosphorus, Blood 3.9 mg/dL (2.5-4.9); Potassium, Blood 3.6 mmol/L (3.5-5.5)
--- NOTE | 2024-11-06 06:42 | NUR ---
ADMITTED FOR RIB FX AND IS A FULL CODE. IS ALERT AND ABLE TO MAKE SOME NEEDS KNOWN. ADLs HAVE BEEN MAINLY 2P. PAIN HAS BEEN MANAGED WITH ROUTINE AND PRN MEDICATION. FOLLY IN PLACE AND DRAINING CLEAR YELLOW URINE. PAT REPORTS SINUS IN THE 90s WITH A BUNDLE BRANCH. HAS EMISIS X1 WAS GIVEN PRN ZOFRAN.
[2024-11-06 08:03] VITALS: BP 141/75
[2024-11-06] MEDS ORDERED: Morphine Sulfate 4 MG/1 ML Injection IV PRN (08:40)
[2024-11-06] MEDS ORDERED: Naloxone HCl 0.4MG / ML 1ML Vial IV PRN (08:40)
[2024-11-06] MEDS ORDERED: Furosemide 10 MG / ML 2ML Vial IV SCH (09:00)
[2024-11-06 11:58] VITALS: BP 123/77
[2024-11-06] MEDS ORDERED: Cyclobenzaprine5 MG PO (15:34)
[2024-11-06] MEDS ORDERED: ACET500 PO (15:34)
[2024-11-06] MEDS ORDERED: OXYC5 PO (15:35)
[2024-11-06] MEDS ORDERED: CEPH500 PO (15:36)
[2024-11-07] MEDS ORDERED: Pantoprazole Sodium 40 MG Injection IV SCH (06:00)
== END 2024-11-06 16:00 | DRG 963 ==
LOC: ER 07:57 → ERHOLD 12:42 → MEDS 12:42 → SURS 14:06 → MEDS 11-05 11:42
PROVIDERS: Emergency Medicine; Hospitalist; ADMIT Surgery
DX: S22.41XA Multiple fractures of ribs, right side, initial encounter for closed fracture (principal); J96.01 Acute respiratory failure with hypoxia; S27.0XXA Traumatic pneumothorax, initial encounter; S36.112A Contusion of liver, initial encounter; E66.2 Morbid (severe) obesity with alveolar hypoventilation; I50.32 Chronic diastolic (congestive) heart failure; E87.20 Acidosis, unspecified; T79.7XXA Traumatic subcutaneous emphysema, initial encounter; W01.198A Fall on same level from slipping, tripping and stumbling with subsequent striking against other object, initial encounter; G47.00 Insomnia, unspecified; M10.9 Gout, unspecified; N40.0 Benign prostatic hyperplasia without lower urinary tract symptoms; J44.9 Chronic obstructive pulmonary disease, unspecified; E11.9 Type 2 diabetes mellitus without complications; F41.9 Anxiety disorder, unspecified; E78.5 Hyperlipidemia, unspecified; Z68.35 Body mass index [BMI] 35.0-35.9, adult; Z90.49 Acquired absence of other specified parts of digestive tract; Z88.8 Allergy status to other drugs, medicaments and biological substances; Z79.82 Long term (current) use of aspirin; Z79.899 Other long term (current) drug therapy; Z87.820 Personal history of traumatic brain injury; Z87.19 Personal history of other diseases of the digestive system; Z99.89 Dependence on other enabling machines and devices; Z87.891 Personal history of nicotine dependence
CPT/HCPCS: 36415; 70450; 71045; 71046; 71260; 72125; 74177; 74230; 80048; 80053; 82248; 82947; 83036; 83605; 83690; 83735; 84100; 84145; 84484; 85014; 85018; 85025; 87070; 87205; 92610; 92611; 93005; 93010; 94640; 94664; 94762; 96365; 96367; 97110; 97112; 97162; 97166; 97530; 99285-25; A9270; C8929; J0456; J0696; J1650; J1885; J1940; J2270; J2405; J7030; J7050; J7120; Q9957; Q9967

== ENCOUNTER 2024-11-16 02:52 | Emergency (ER) | payer OTHER ==
[~2024-11-16] VITALS: Ht 182.9 cm; Wt 81.7 kg
[~2024-11-16 02:52] MED LIST changes: +ACET500 PO; +B-12500 MC2 PO; +CEPH500 PO; +Cyclobenzaprine5 MG PO; +LIDO700A20 TOP; +MELA3 PO; +MIRALAX17 GM PO; +OXYC5 PO; +POTASSIUM CHLO15 MEQ PO; +Prozac40 MG PO
[2024-11-16] MEDS ORDERED: GUAI600T33 PO (06:15)
[2024-11-16] MEDS ORDERED: BUSPIRONE HCL PO (06:16)
[2024-11-16] MEDS ORDERED: QUET25 PO (06:16)
[2024-11-16] MEDS ORDERED: Flonase 0.05% N16 GM (06:18)
[2024-11-16] MEDS ORDERED: HYDHCL25 PO (06:19)
[2024-11-16 07:30] VITALS: BP 121/69
== END 2024-11-16 07:31 | disposition home or self-care (01) ==
LOC: ER 02:52
DX: R45.1 Restlessness and agitation (principal); M79.81 Nontraumatic hematoma of soft tissue; G47.33 Obstructive sleep apnea (adult) (pediatric); E78.5 Hyperlipidemia, unspecified; Z86.73 Personal history of transient ischemic attack (TIA), and cerebral infarction without residual deficits; Z79.02 Long term (current) use of antithrombotics/antiplatelets; Z87.891 Personal history of nicotine dependence; Z79.84 Long term (current) use of oral hypoglycemic drugs; Z79.51 Long term (current) use of inhaled steroids; Z79.899 Other long term (current) drug therapy; Z79.82 Long term (current) use of aspirin; Z88.8 Allergy status to other drugs, medicaments and biological substances
CPT/HCPCS: 99285

== ENCOUNTER 2024-11-22 12:09 | Inpatient (IN) | payer OTHER ==
[~2024-11-22] VITALS: Ht 177.8 cm; Wt 108.9 kg
[~2024-11-22 12:09] MED LIST changes: +BUSPIRONE HCL PO; +Flonase 0.05% N16 GM; +GUAI600T33 PO; +HYDHCL25 PO; +QUET25 PO
[2024-11-22] MEDS ORDERED: Ipratropium/Albuterol SulF 2.5-0.5MG/3 ML Amp INH ONE (15:35)
[2024-11-22] MEDS ORDERED: HyDROXyzine HCl 25 MG Tab PO ONE (15:55)
[2024-11-22 16:13] LABS: Base Excess Venous 1.8 mmol/L; Bicarbonate Venous 25.8 mmol/L (24.0-30.0); PCO2 Venous 41.1 mmHg (38-42); pH Blood Venous 7.42 (7.34-7.37)
[2024-11-22 16:20] LABS: BASOPHILS ABSOLUTE AUTO 0.01 K/mm3 (0.00-0.23); BASOPHILS PERCENT AUTO 0 % (0-2); EOSINOPHILS ABSOLUTE AUTO 0.01 K/mm3 (0.00-0.68); EOSINOPHILS PERCENT AUTO 0 % (0-6); Hematocrit 36.6 % (37.0-53.0); Hemoglobin 12.5 g/dL (13.5-17.5); IMMATURE GRAN ABSOLUTE AUTO 0.05 K/mm3 (0.00-0.10); IMMATURE GRAN PERCENT AUTO 1 % (0-1); LYMPHOCYTES ABSOLUTE AUTO 0.55 K/mm3 (0.84-5.20); LYMPHOCYTES PERCENT AUTO 6 % (21-46); MONOCYTES ABSOLUTE AUTO 0.09 K/mm3 (0.16-1.47); MONOCYTES PERCENT AUTO 1 % (4-13); Mean Corpuscular HGB 32.1 pg (26.0-34.0); Mean Corpuscular HGB Conc 34.2 g/dL (31.5-36.5); Mean Corpuscular Volume 94 fL (80-100); Mean Platelet Volume 9.5 fL (9.1-12.4); NEUTROPHILS ABSOLUTE AUTO 7.97 K/mm3 (1.96-9.15); NEUTROPHILS PERCENT AUTO 92 % (41-73); Platelet Count 218 K/mm3 (150-400); RDW Coefficient Variation 13.2 % (11.7-14.2); RDW Standard Deviation 45.4 fL (35.1-46.3); White Blood Cell Count 8.68 K/mm3 (4.00-11.30)
[2024-11-22 17:07] LABS: Albumin, Blood 3.5 g/dL (3.4-5.0); Albumin/Globulin Ratio 0.9 (0.8-1.8); Bilirubin, Total 0.6 mg/dL (0.1-1.0); Bun/Creatinine Ratio 17.1 (12.0-20.0); Creatinine, Blood 0.94 mg/dL (0.60-1.20); Potassium, Blood 3.9 mmol/L (3.5-5.5); Total Protein, Blood 7.5 g/dL (6.4-8.2)
[2024-11-22] MEDS ORDERED: FLU VACC TS2024-25(6MOS UP)/PF 45 MCG/0.5 ML SYRINGE IM ONE (18:50)
[2024-11-22] MEDS ORDERED: Lactated Ringer's 1,000 ML IV SCH (19:00)
[2024-11-22 19:30] LABS: Source, Urine Clean Catch
[2024-11-22 19:36] LABS: Appearance, Urine Clear (Clear); Bilirubin, Urine Neg (Neg); Blood, Urine Neg (Neg); Color, Urine Yellow (P-Yellow); Glucose Qualitative, Urine Neg (Neg); Ketones, Urine Neg (Neg); Leukocyte Esterase, Urine Neg (Neg); Nitrite, Urine Neg (Neg); Protein, Urine Neg (Neg); Urobilinogen, Urine NORM (Normal)
[2024-11-22 22:13] VITALS: BP 139/81
[2024-11-22] MEDS ORDERED: Albuterol 2.5 MG/3 ML VIAL INH PRN (23:05)
[2024-11-23] VITALS (7 sets, daily range): BP systolic 123–146; BP diastolic 73–105
[2024-11-23] MEDS ORDERED: OxyCODONE HCL 5 MG TAB PO PRN (01:10)
--- NOTE | 2024-11-23 07:35 | NUR ---
MODEL AND DYE PERSON SUMMARY PT ADMITTED FROM THE ER. ADMISSION ASSESSMENT SOMEWHAT DIFFICULT R/T POOR HISTORIAN/CONFUSION/HX OF TBI/CVA/DEMENTIA AND SLURRED SPEECH. PT WAS RETAINING 822CC OF URINE AND ACCORDING TO THE NURSE AT HIS FACILITY, HE HAS BEEN A CHRONIC DHALIWAL PATIENT UP UNTIL A COUPLE DAYS AGO WHEN THEY TRIALED TAKING IT OUT. HOWEVER, IN THE LAST COUPLE DAYS BEFORE ADMISSION THEY WERE HAVING TO STRAIGHT CATH HIM A FEW TIMES AND HE HAD A FEW NORMAL VOIDS WELL. URINE RETENTION CAUSING PT SIGNIFICANT AGITATION AND YELLING INTO THE TORRES. ORDER RECEIVED FOR DHALIWAL AND IT IMMEDIATELY DRAINED 1100CC OF URINE SO WE CLAMPED IT FOR A HALF HOUR. ACCORDING TO THE EMAR FROM PTS FACILITY HE HAS BEEN GETTING 5-10MG OF OXYCODONE Q4HRS AND HE WAS ASKING FOR HIS PAIN MEDS AND UNABLE TO MOVE R/T SEVERE PAIN R/T HIS FALL. ORDER RECEIVED TO RESTART HIS HOME DOSE. LR @75/HR X 1 BAG. PT WILL NEED A PT EVAL ORDERED. ANTICIPATING MODERN DANCER EVAL TODAY AND POSSIBLE THOROCENTESIS TODAY.
--- NOTE | 2024-11-23 07:38 | NUR ---
ASSUMPTION OF CARE: INTERMITTENTLY AWAKE DURING SHIFT-CHANGE REPORT WITH RANDOM OUTBURSTS AND INDISTIGUISHABLE WORDING. POOR ABILITY TO COPE AND ESCALATES QUICKLY WITH ANY NEEDS, PER OUTGOING NURSE.
[2024-11-23 10:03] LABS: International Normalized Ratio 1.02; Prothrombin Time Results 10.9 Sec (9.7-11.5)
[2024-11-23 12:18] LABS: Automated BF WBC Count 4.768 K/mm3 (0-999); RBC Count, Body Fluid 3350000 /mm3 (0-0)
[2024-11-23 12:23] LABS: Body Fluid WBC Count 4768 /mm3 (0-999)
[2024-11-23 12:37] LABS: Color, Body Fluid Red (None-Yellow)
[2024-11-23 12:51] LABS: Albumin, Body Fluid 2.5 g/dL
[2024-11-23 12:52] LABS: Lactate Dehydrogenase, Body Fl 881 U/L; Protein, Body Fluid 5.2 g/dL
[2024-11-23 12:54] LABS: Appearance, Body Fluid Bloody (Clear)
[2024-11-23] MEDS ORDERED: CefTRIAXone Sodium 1,000 MG in NS 100 ML IV SCH (14:00)
[2024-11-23 14:08] LABS: Total Cell Count, Body Fluid 100
[2024-11-23] MEDS ORDERED: Ketorolac Tromethamine 15mg Vial IV PRN (16:05)
[2024-11-23] MEDS ORDERED: Insulin Human Lispro 100 Units/ML 3ML Syringe SC SCH ×2 (16:30)
--- NOTE | 2024-11-23 20:18 | NUR ---
END OF SHIFT SUMMARY: A&Ox4. PLEASANT AND COOPERATIVE WITH CARE. CALLS APPROPRIATELY AND IS ABLE TO ADVOCATE NEEDS EFFECTIVELY. DHALIWAL FOR ACUTE RETENTION PATENT AND DRAINING YELLOW URINE TO GRAVITY. BEDREST. MEDS CRUSHED WITH APPLESAUCE PER ST. MINCED/MOIST DIET WITH OBSERVED MEALS, HONEY-THICK, SPOONED LIQUIDS PER SPEECH THERAPY. SUCTION PLACED AT BEDSIDE DUE TO HIGH ASPIRATION RISK. C/O SIGNIFICANT PAIN IN LEFT THORAX AND GUARDED COUGHING SECONDARY TO RIB Fx. THORACENTESIS DONE TODAY AND DRAINED 350mL BLOODY DRAINAGE; CULTURE PENDING. STARTED ON ABx. ADDED TORADOL FOR RIB PAIN. BED IN LOWEST POSITION, CALL LIGHT WITHIN REACH, ALL NEEDS MET. REPORT TO ONCOMING NURSE.
--- NOTE | 2024-11-24 04:13 | NUR ---
SHIFT SUMMARY: Pt admitted for acute on chronic hypoxic failure and is a full code. Is alert and able to make needs known. ADLs have been 1-2 depending on activity. Pain has been managed with PRN medications. Folly in place and draining clear yellow urine.
[2024-11-24 04:16] VITALS: BP 135/71
[2024-11-24 05:33] LABS: Hematocrit 38.3 % (37.0-53.0); Hemoglobin 12.9 g/dL (13.5-17.5); Mean Corpuscular HGB 31.9 pg (26.0-34.0); Mean Corpuscular HGB Conc 33.7 g/dL (31.5-36.5); Mean Corpuscular Volume 95 fL (80-100); Mean Platelet Volume 9.6 fL (9.1-12.4); Platelet Count 239 K/mm3 (150-400); RDW Coefficient Variation 13.2 % (11.7-14.2); RDW Standard Deviation 46.5 fL (35.1-46.3); Red Blood Cell Count 4.04 M/mm3 (4.30-5.90)
[2024-11-24 05:53] LABS: Albumin, Blood 3.3 g/dL (3.4-5.0); Anion Gap 11 mmol/L (3-11); Blood Urea Nitrogen 17 mg/dL (8-24); Bun/Creatinine Ratio 21.8 (12.0-20.0); CO2, Blood 26 mmol/L (21-32); Chloride, Blood 106 mmol/L (98-108); Creatinine, Blood 0.78 mg/dL (0.60-1.20); Glomerular Filtration Rate 95 (60-); Glucose, Blood 116 mg/dL (70-99); Magnesium, Blood 2.2 mg/dL (1.6-2.4); Phosphorus, Blood 3.6 mg/dL (2.5-4.9); Potassium, Blood 4.2 mmol/L (3.5-5.5); Sodium, Blood 139 mmol/L (136-145)
[2024-11-24 07:35] VITALS: BP 141/81
[2024-11-24 16:08] VITALS: BP 121/106
--- NOTE | 2024-11-24 19:25 | NUR ---
PT PLEASANT TODAY. MED X2 FOR YAMIL TODAY. A/O X3 T/O DAY. SOME AMPING UP NOTED THIS EARLY TARA. LUCERO TALKING TO NO-ONE. CALLING OUT. NO OTHER NEW CONCERNS NOTED. BED IN LOW POSITION, CALL LITE IN REACH, BED ALARM ON FOR SAFETY
[2024-11-24 19:30] VITALS: BP 137/93
[2024-11-24] MEDS ORDERED: Fluticasone 0.05% Nasal Spray PRN (20:20)
[2024-11-25 04:20] VITALS: BP 109/46
--- NOTE | 2024-11-25 05:46 | NUR ---
MONKEY TRAINER SUMMARY PT WAS AWAKE MOST OF THE NIGHT BUT FELL ASLEEP OF 0500 SO HE IS A BIT DROWSY THIS MORNING. HE DOES EXPERIENCE SUNDOWNING AT BEDTIME. REFUSING CPAP. REQUIRING 4-6L O2 BUT OVERALL SPO2 SATS ARE MUCH IMPROVED SINCE ADMISSION.
[2024-11-25 08:07] VITALS: BP 137/71
[2024-11-25 17:06] VITALS: BP 131/71
--- NOTE | 2024-11-25 18:17 | NUR ---
PT PLEASANT COOP TODAY. OCCATIONALLY CALLING OUT NONSENSE. MEDICATING FOR PAIN REGULARLY. IS CONTROLLING TO HIS SATISFACTION. CAREGIVER CALLED AND INTENDS TO STOP IN TOMORROW AM TO GET UPDATE FROM ON CARE PLAN. RECOMMENDED SHE COME EARLY, AND PLAN TO STAY UNTIL MAYBE NOON TO BE SEE . SHOULD BE ABLE. NO NEW CONCERNS NOTED. BED IN LOW POSITION, CALL LITE IN REACH, BED ALARM ON FOR SAFETY
[2024-11-25 19:09] VITALS: BP 130/92
[2024-11-26 04:43] VITALS: BP 127/84
[2024-11-26 07:40] VITALS: BP 123/70
--- NOTE | 2024-11-26 07:52 | NUR ---
PT WEANED FROM 6L TO 5L OVERNIGHT. PT WAS ABLE TO GET OUT OF BED WITH X2 ASSIST WITH A FWW TO THE BSC TO HAVE A BOWEL MOVEMENT. PT HAD ONE EPISODE OF DIARRHEA.
[2024-11-26] MEDS ORDERED: FLUoxetine HCL 20 MG CAP PO SCH (15:00)
[2024-11-26 16:02] VITALS: BP 140/77
--- NOTE | 2024-11-26 17:34 | NUR ---
SHIFT SUMMARY - PT IS A&O X3. PMH: DEMENTIA, ALZHEIMERS, AUDITORY HALLUCINATIONS AT NIGHT. HE HAS A DHALIWAL DRAINING YELLOW URINE TO GRAVITY, THERE FOR URINARY RETENTION. HE IS CONTINENT OF BOWEL, HAD ONE LARGE BM TODAY. HE HAS A TBI WITH EXPRESSIVE APHASIA AND DYSPHAGIA. ON A SOFT/MOIST DIET WITH PILLS CRUSHED IN PUREE. ORIGINALLY PLANN[facility], BUT THAT PLAN WAS CHANGED WHEN [facility] WAS NOT GOING TO ACCEPT HIM. PRESENTLY, HE IS AWAITING PLACEMENT. HE SAT IN THE CHAIR FOR LUNCH TODAY AND WORKED WITH PHYSICAL THERAPY. TWO PERSON ASSIST WITH GB TO BEDSIDE COMMODE.
[2024-11-26 19:37] VITALS: BP 120/76
[2024-11-26] MEDS ORDERED: Amoxicillin/Clavulanate K 875 MG Tab PO SCH (21:00)
[2024-11-27 05:09] VITALS: BP 118/72
[2024-11-27 06:52] LABS: Hematocrit 36.5 % (37.0-53.0); Hemoglobin 12.4 g/dL (13.5-17.5); Mean Corpuscular HGB 31.5 pg (26.0-34.0); Mean Corpuscular Volume 93 fL (80-100); Mean Platelet Volume 9.2 fL (9.1-12.4); Platelet Count 201 K/mm3 (150-400); RDW Standard Deviation 44.2 fL (35.1-46.3); Red Blood Cell Count 3.94 M/mm3 (4.30-5.90); White Blood Cell Count 6.76 K/mm3 (4.00-11.30)
[2024-11-27 07:08] LABS: Albumin, Blood 2.9 g/dL (3.4-5.0); Anion Gap 8 mmol/L (3-11); Blood Urea Nitrogen 9 mg/dL (8-24); Bun/Creatinine Ratio 14.6 (12.0-20.0); CO2, Blood 28 mmol/L (21-32); Calcium, Blood 8.3 mg/dL (8.5-10.1); Chloride, Blood 107 mmol/L (98-108); Creatinine, Blood 0.62 mg/dL (0.60-1.20); Glomerular Filtration Rate 102 (60-); Glucose, Blood 136 mg/dL (70-99); Phosphorus, Blood 2.9 mg/dL (2.5-4.9); Potassium, Blood 3.6 mmol/L (3.5-5.5); Sodium, Blood 139 mmol/L (136-145)
[2024-11-27 07:31] VITALS: BP 138/73
--- NOTE | 2024-11-27 07:43 | NUR ---
PT WEANED DOWN TO 4L FROM 5 AND IS TOLERATING WELL WITH SATS >92 ON CONTINUOUS SPO2
[2024-11-27] MEDS ORDERED: Finasteride 5 MG Tab PO SCH (09:00)
[2024-11-27] MEDS ORDERED: AMOCLA875 PO (13:40)
--- NOTE | 2024-11-27 15:43 | NUR ---
DISCHARGE NOTE PT A&OX3. PT IS FORGETFUL. PT ADMITTED DUE TO ACUTE ON CHRONIC HYPOXIC RESP FAILURE. PT ON 4L OF O2 VIA N/C. PT UP 90 DEGREES FOR PO INTAKE. TAKES MEDS CRUSHED WITH APPLESAUCE. VSS. PT IS A 2 PERSON ASSIST TO BSC. PT CONT OF BM AND LAST HAD ONE THIS AM. PT HAS DHLAIWAL, DRAINING FREELY WITH NO DEPENDENT LOOPS. PT WENT WITH CHRONIC DHALIWAL. PT SENT WITH DISCHARGE INSTRUCTIONS. PT SENT WITH HARD SCRIPT. GAVE REPORT TO RN AT [facility], RN NOTED NO QUESTIONS. PT LEFT WITH PERSONAL BELONGINGS. PT PICKED UP BY TRANSFER. LEFT VIA WHEELCHAIR. PT LEFT WITH NO IV.
== END 2024-11-27 14:37 | DRG 193 ==
LOC: ER 12:09 → MEDS 12:10 → ERHOLD 12:10 → MEDS 21:55
PROVIDERS: Student in an Organized Health Care Education/Training Program; ADMIT Internal Medicine
PROC: 5A09357 Assistance with Respiratory Ventilation, Less than 24 Consecutive Hours, Continuous Positive Airway Pressure (ICD-10-PCS; principal; 2024-11-22)
PROC: 0W9B3ZZ Drainage of Left Pleural Cavity, Percutaneous Approach (ICD-10-PCS; 2024-11-23)
DX: J18.9 Pneumonia, unspecified organism (principal); J96.21 Acute and chronic respiratory failure with hypoxia; I50.32 Chronic diastolic (congestive) heart failure; E66.2 Morbid (severe) obesity with alveolar hypoventilation; J90 Pleural effusion, not elsewhere classified; F01.54 Vascular dementia, unspecified severity, with anxiety; F01.53 Vascular dementia, unspecified severity, with mood disturbance; D64.9 Anemia, unspecified; E11.9 Type 2 diabetes mellitus without complications; R13.10 Dysphagia, unspecified; J44.9 Chronic obstructive pulmonary disease, unspecified; N40.0 Benign prostatic hyperplasia without lower urinary tract symptoms; E78.5 Hyperlipidemia, unspecified; M10.9 Gout, unspecified; G47.00 Insomnia, unspecified; Z88.8 Allergy status to other drugs, medicaments and biological substances; Z79.82 Long term (current) use of aspirin; Z79.899 Other long term (current) drug therapy; Z79.891 Long term (current) use of opiate analgesic; Z79.84 Long term (current) use of oral hypoglycemic drugs; Z86.73 Personal history of transient ischemic attack (TIA), and cerebral infarction without residual deficits; Z87.19 Personal history of other diseases of the digestive system; Z87.891 Personal history of nicotine dependence; Z87.81 Personal history of (healed) traumatic fracture; Z68.34 Body mass index [BMI] 34.0-34.9, adult; Z99.81 Dependence on supplemental oxygen
CPT/HCPCS: 32555; 36415; 71045; 74177; 80053; 80069; 81003; 82042; 82803; 82947; 83615; 83690; 83735; 84145; 84157; 84484; 85025; 85027; 85610; 87070; 87075; 87081; 87205; 87430; 89051; 92523; 92526; 92610; 93005; 93010; 94640; 94660; 94664; 94762; 97116; 97161; 97530; 99285-25; A9270; G0378; J0696; J1885; J7120; Q9967

== ENCOUNTER 2025-05-13 21:27 | Emergency (ER) | payer OTHER ==
[~2025-05-13] VITALS: Ht 175.3 cm; Wt 103.0 kg
[~2025-05-13 21:27] MED LIST changes: +AMOCLA875 PO
[2025-05-13 21:44] VITALS: BP 117/83
== END 2025-05-13 22:16 | disposition home or self-care (01) ==
LOC: ER 21:27
DX: S01.01XA Laceration without foreign body of scalp, initial encounter (principal); Z88.8 Allergy status to other drugs, medicaments and biological substances; Z79.2 Long term (current) use of antibiotics; Z79.899 Other long term (current) drug therapy; Z79.84 Long term (current) use of oral hypoglycemic drugs; I50.30 Unspecified diastolic (congestive) heart failure; E78.5 Hyperlipidemia, unspecified; Z87.891 Personal history of nicotine dependence; W22.8XXA Striking against or struck by other objects, initial encounter
CPT/HCPCS: 12002; 99282-25

== ENCOUNTER 2025-06-11 18:36 | Emergency (ER) | payer OTHER ==
[~2025-06-11] VITALS: Ht 177.8 cm; Wt 103.0 kg
[2025-06-11 19:13] VITALS: BP 126/61
== END 2025-06-11 23:59 | disposition home or self-care (01) ==
LOC: ER 18:36
DX: S01.312A Laceration without foreign body of left ear, initial encounter (principal); I50.30 Unspecified diastolic (congestive) heart failure; M10.9 Gout, unspecified; G47.33 Obstructive sleep apnea (adult) (pediatric); E78.5 Hyperlipidemia, unspecified; Z87.891 Personal history of nicotine dependence; Z86.73 Personal history of transient ischemic attack (TIA), and cerebral infarction without residual deficits; Z88.8 Allergy status to other drugs, medicaments and biological substances; Z79.82 Long term (current) use of aspirin; Z79.02 Long term (current) use of antithrombotics/antiplatelets; Z79.84 Long term (current) use of oral hypoglycemic drugs; Z79.899 Other long term (current) drug therapy; Z59.89 Other problems related to housing and economic circumstances; W45.8XXA Other foreign body or object entering through skin, initial encounter
CPT/HCPCS: 12011; 70450; 99283-25; A9270